=== PATIENT | female | born 1950 ===

== ENCOUNTER 2018-12-07 11:51 | Outpatient (CLI) | payer OTHER ==
[~2018-12-07] VITALS: Ht 152.4 cm; Wt 68.0 kg
== END 2018-12-07 12:56 | disposition home or self-care (01) ==
LOC: OFIC 805 11:51
DX: H90.3 Sensorineural hearing loss, bilateral (principal); H81.13 Benign paroxysmal vertigo, bilateral

== ENCOUNTER → 2020-08-07 | Outpatient (CLI) | payer OTHER | END | disposition home or self-care (01) | LOC: LAB 15:17 | PROVIDERS: ATTEND Radiology Diagnostic Radiology | DX: K80.20 Calculus of gallbladder without cholecystitis without obstruction (principal) ==

== ENCOUNTER 2020-08-26 10:47 | Outpatient (CLI) | payer OTHER | END 2020-08-26 10:58 | disposition home or self-care (01) | LOC: MRI 10:47 | PROVIDERS: ATTEND Urology | DX: N28.1 Cyst of kidney, acquired (principal) | CPT/HCPCS: 74183; A9575 ==